=== PATIENT | male | born 1985 | race African-American/Black ===

== ENCOUNTER 2022-12-08 02:03 | Emergency (ER) | payer OTHER, SELFPAY ==
[2022-12-08 02:11] VITALS: BP 126/76; PULSE 119; RESP 20; TEMP 37.2; O2SAT 98; BMI 19.5
[2022-12-08] MEDS: Ibuprofen 800 MG TABLET PO (02:50)
--- NOTE | 2022-12-08 02:52 | ED.PSYCH ---
HPI - Psych General Chief Complaint: Psychiatric Symptoms Stated Complaint: psych Time Seen by Provider: 12/08/22 02:47 Source: patient Mode of arrival: ambulatory Limitations: no limitations History of Present Illness HPI Narrative: 37 yo male with PMH of schizoaffective disorder, psychosis, substance abuse here with c/o AH, using drugs, no housing and doesn't feel safe. He has no SI/HI. He states he has not taken his suboxone in 1 week and is using drugs. He wants to talk to crsisi. VAZQUEZ complaint: substance abuse and hallucinations Onset (ago): week(s) Duration: getting worse History of same: Yes Relieving factors: none Exacerbating factors: drug use Context: recent drug abuse, not taking psychiatric medications and significant life stressor Associated psychiatric symptoms: depression and auditory hallucinations Associated symptoms: denies other symptoms Treatments prior to arrival: none Related Data Home Medications Medication Instructions Recorded Confirmed buprenorphine 8 mg-naloxone 2 mg 1 film sublingual TID 12/08/22 12/08/22 sublingual film (Suboxone) Allergies Allergy/AdvReac Type Severity Reaction Status Date / Time No Known Allergies Allergy Verified 12/08/22 02:15 Review of Systems Review of Systems: Constitutional : No Fever, No Chills ENT/Mouth : No Ear Pain, No Nasal Congestion, No sore throat Eyes: No Eye Pain, No Swelling, No Redness Cardiovascular : No Chest Pain, No SOB Respiratory : No Cough, No Sputum, No Dyspnea Gastrointestinal : No Nausea, No Vomiting, No Diarrhea, No Hematochezia, No Melena Genitourinary : No Dysuria, No Urinary Frequency, No Hematuria Musculoskeletal : No Myalgias Skin : No Skin Lesions, No rash Neuro : No Weakness, No Numbness, No Paresthesias, No Dizziness, No Headache Psych : positive Anxiety, no Depression, no SI/HI, pos AH Heme/Lymph: No Lymphadenopathy Endocrine : No Polyuria, No Polydipsia All other systems reviewed and are negative PMFSH Past Medical History Attestation statement: The following information was validated with the patient. Medical History Schizoaffective disorder Social History Social History (Updated 12/08/22 @ 03:16 by Dixie Aguiar DO) Patient Tobacco Use Status: Current everyday Tobacco user Substance Use Type: Crack/Cocaine and Heroin Physical Exam Vital Signs: Vital Signs: Last Vital Signs Temp 99 F 12/08/22 02:11 Pulse 119 H 12/08/22 02:11 Resp 20 12/08/22 02:11 BP 126/76 12/08/22 02:11 Pulse Ox 98 12/08/22 02:11 O2 Del Method Room Air 12/08/22 02:11 BMI result Body Mass Index 19.5 Appearance: Alert. Oriented X3. No acute distress. Eating a sandwhich Eyes: Pupils equal, round and reactive to light. ENT: Pharynx normal. Neck: Normal inspection. Neck supple. CVS: Normal heart rate and rhythm. Pulses normal. Respiratory: No respiratory distress. Breath sounds normal. Abdomen: Soft and nontender. Skin: Skin warm and dry. Normal skin color. Normal skin turgor. Extremities: No lower extremity edema. No calf ttp Neuro: Oriented X 3. No motor deficit. No sensory deficit. CN2-12. Fluent conversation Course Course Course Narrative: Physician observation started at 318pm. Patient placed in physician observation because the patient needed more time for CARE team to assess the need for psych admission. At the time observation was started the patient's vitals were stable, patient is alert and oriented, Neuro: nonfocal, CV RRR, Lungs clear Medications Administered Discontinued Medications Generic Name Dose Route Start Last Admin Trade Name Javi PRN Reason Stop Dose Admin Ibuprofen 800 mg 12/08/22 02:42 12/08/22 02:50 Ibuprofen 800 Mg Tablet PO 12/08/22 02:43 800 mg ONCE ONE Administration Medical Decision Making Medical Decision Making [facility] Narrative: 37 yo male with PMH of schizoaffective disorder here with c/o substance abuse not taking medications and AH - at this time labs, CARE team consult. Denies medical complaints Differential Diagnosis Differential Diagnoses: The differential diagnosis associated with the presentation includes substance abuse, schizoaffective disorder Admission/Observation Consideration of admission/observation: Escalation of care including admission/observation considered observe until CARE team sees pateint Lab Data [facility] Lab Attestation statement: I reviewed the patient's lab results. External Record Review External record reviewed: Inpatient record Social Determinants Patient?s care significantly limited by Social Determinants of Health including: Inadequate housing, Alcoholism and drug addiction in family and Problems related to primary support group Discharge Plan Discharge Clinical Impression: Polysubstance abuse Patient Disposition: Still a Patient Prescriptions: No Action buprenorphine-naloxone [Suboxone] 8-2 mg film 1 film sublingual TID
[2022-12-08 03:31] LABS: MANUAL DIFF FLAG NO
[2022-12-08 03:32] LABS: Basophils Absolute Auto 0.1 X10*3/uL (0.0-0.2); Basophils Percent Auto 0.6 % (0-2); Eosinophils Absolute Auto 0.2 X10*3/uL (0.0-0.4); Eosinophils Percent Auto 1.9 % (0-4); Hematocrit 42.9 % (42.0-52.0); Hemoglobin 14.6 g/dl (14.0-18.0); Imm Gran Abs Auto 0.03 X10*3/uL (0.00-0.03); Imm Gran Pct Auto 0.4 % (0.0-0.4); Lymphocytes Percent Auto 26.2 % (20-40); Mean Corpuscular Hemoglobin 31.2 pg (27.0-33.0); Mean Corpuscular Volume 91.7 fL (80.0-98.0); Mean Platelet Volume 9.6 fL (9.4-12.4); Monocytes Absolute Auto 0.5 X10*3/uL (0.1-1.2); Monocytes Percent Auto 6.2 % (2-11); Neutrophils Percent Auto 64.7 % (45-73); Platelet Count 317 X10*3/uL (160-400); Red Blood Count 4.68 X10*6/uL (4.60-5.80); Red Cell Distribution Width 11.7 % (11.0-16.0); White Blood Count 7.7 X10*3/uL (4.8-10.8)
[2022-12-08 03:33] LABS: Appearance Urine Clear; Color Urine Yellow; Glucose Urine UA Negative (Negative); Leukocyte Esterase Urine Trace (Negative); Nitrite Urine Negative (Negative); PH 5.5 (5.0-9.0); UMIC TRIGGER UACC YES; Urine Blood Negative (Negative); Urine Ketones Negative (Negative); Urine Protein Negative (Neg-Trace)
[2022-12-08 03:38] LABS: Bacteria Urine None Seen (None Seen); Hyaline Casts Urine 0-2 /LPF (0-2); RBC Urine 0-2 /HPF (0-2); Squamous Epithelial Cell Urine 0-2 /HPF (0-2); WBC Urine 0-5 /HPF (0-5)
[2022-12-08 03:39] LABS: Amphetamine Screen Urine Not Detected (Not Detect); Barbiturates, Urine Not Detected (Not Detect); Benzodiazepines Screen Urine Not Detected (Not Detect); Cannabinoid Screen Urine POSITIVE (Not Detect); Cocaine Screen Urine POSITIVE (Not Detect); Fentanyl, urine POSITIVE (Not Detect); Opiate Screen Urine Not Detected (Not Detect); Phencyclidine Screen Urine Not Detected (Not Detect)
[2022-12-08 03:46] LABS: Alanine Aminotransferase 17 U/L (0-40); Alkaline Phosphatase 88 U/L (39-117); Anion Gap 17 (12-20); Aspartate Amino Transferase 26 U/L (5-37); Bilirubin Total 0.3 mg/dL (0.0-1.0); Blood Urea Nitrogen 10 mg/dL (9-16); Calcium 9.2 mg/dL (8.4-10.2); Carbon Dioxide 22 mmol/L (22-29); Chloride 104 mmol/L (96-108); Creatinine Clr Calc Pharmacy 118.7; Estimated Glomerular Filt Rate > 60; Ethanol 47 mg/dL; Glucose Random 118 mg/dL (60-115); Potassium 3.4 mmol/L (3.3-5.1); Sodium 140 mmol/L (135-145); Total Protein 6.8 g/dL (6.5-8.0)
[2022-12-08 06:51] LABS: COVID-19 Test Negative (Negative); IDNOW Serial# 6674DD1D
--- NOTE | 2022-12-08 07:21 | PC.NURSE ---
patient appears to remain asleep at present respirations are even and unlabored patient appears in no distress
[2022-12-08 08:36] VITALS: BP 120/69; PULSE 68; RESP 17; TEMP 36.4; O2SAT 99
--- NOTE | 2022-12-08 11:01 | MHC.CARE ---
Referral faxed to [facility] crisis stabilization unit. they will review.
[2022-12-08] MEDS: Buprenorphine/Naloxone 8/2 mg FILM 1 FILM SUBLINGUAL ×3 (11:52→21:04)
--- NOTE | 2022-12-08 13:04 | MHC.CARE ---
lvignacio w pt mother, reqesting call back
--- NOTE | 2022-12-08 13:09 | MHC.CARE ---
Per Ayaan with [facility], patient is still in review with [facility] for Adult [facility]
--- NOTE | 2022-12-08 14:39 | MHC.CARE ---
Faxed CCS referral to [facility], contact is Monica.
--- NOTE | 2022-12-08 14:50 | MHC.CARE ---
Monica CACERES calls back, they would like pt to be re-referred if needed tomorrow, concerned he had a BAL this morning and want to make sure he is stable with no withdrawals.
[2022-12-08] MEDS: hydrOXYzine HCL 50 MG TABLET PO (15:49)
--- NOTE | 2022-12-08 19:36 | MHC.CARE ---
[facility] declined pt reporting he may have withdrawals. T/w informed them t has not been exhibiting withdrawal sx's in ED and in fact was given methadone at 4 PM today. [facility] to speak with ingot supervisor and call back.
[2022-12-08 20:48] VITALS: BP 130/84; PULSE 85; RESP 20; TEMP 36.5; O2SAT 98
--- NOTE | 2022-12-08 22:03 | PHA.MEDREC ---
Pharmacy Consult ? Medication Reconciliation Pharmacy has reviewed the medication reconciliation completed by Arvind.
[2022-12-09 00:33] VITALS: BP 120/82; PULSE 103; RESP 18; TEMP 36.6; O2SAT 97
--- NOTE | 2022-12-09 06:25 | PC.NURSE ---
Patient slept through the night, no distress observed/reported, behavior non concerning, labs completed/resulted/reviewed, medication compliant, asymptomatic of ETOH withdrawal, CIWA score negative, disposition per care team is respite bed search, will continue to monitor.
[2022-12-09] MEDS: hydrOXYzine HCL 50 MG TABLET PO (08:10)
[2022-12-09] MEDS: Buprenorphine/Naloxone 8/2 mg FILM 1 FILM SUBLINGUAL (08:10)
--- NOTE | 2022-12-09 09:10 | MHC.CARE ---
faxed assessment to [facility] as requested, for review of Adult CCS LOC.
--- NOTE | 2022-12-09 10:18 | MHC.CARE ---
declined from [facility] adult [facility]. Faxed to [facility] 12/09 [phone]
[2022-12-09 11:01] VITALS: RESP 18
--- NOTE | 2022-12-09 11:49 | PC.NURSE ---
Lawrence was OOB this morning and was pleasant on approach. He denies any SI/HI but does endorse a little AH which he describes as whispers. Lawrence reports these are baseline for him but he is considering getting a provider to get back on psych meds. Appetite is good. Denies pain. Will be discharging to respite. Given a prescription for suboxone at discharge.
== END 2022-12-09 11:52 | disposition home or self-care (01) ==
PROVIDERS: Emergency Medicine; Emergency Provider Emergency Medicine Emergency Medical Services
DX: R44.1 Visual hallucinations (principal); F33.1 Major depressive disorder, recurrent, moderate; R44.0 Auditory hallucinations; F14.10 Cocaine abuse, uncomplicated; F11.10 Opioid abuse, uncomplicated; Z11.52 Encounter for screening for COVID-19; Z20.822 Contact with and (suspected) exposure to COVID-19; Z79.899 Other long term (current) drug therapy
CPT/HCPCS: 36415; 80053; 80307; 81001; 85025; 87635; 99284; S9485

== ENCOUNTER 2022-12-24 04:17 | Emergency (ER) | payer OTHER, SELFPAY ==
[2022-12-24 04:39] VITALS: BP 121/76; PULSE 132; RESP 20; TEMP 36.8; O2SAT 96; BMI 22.1
[2022-12-24 05:06] LABS: Hematocrit 40.9 % (42.0-52.0); Mean Corpuscular HGB Conc 34.2 g/dl (31.0-36.0); Mean Corpuscular Hemoglobin 30.8 pg (27.0-33.0); Mean Corpuscular Volume 89.9 fL (80.0-98.0); Mean Platelet Volume 9.5 fL (9.4-12.4); Platelet Count 350 X10*3/uL (160-400); Red Blood Count 4.55 X10*6/uL (4.60-5.80); Red Cell Distribution Width 10.9 % (11.0-16.0); White Blood Count 15.1 X10*3/uL (4.8-10.8)
[2022-12-24 05:18] VITALS: BP 119/75; PULSE 106; RESP 18; TEMP 36.8; O2SAT 94
[2022-12-24 05:19] LABS: Alanine Aminotransferase 42 U/L (0-40); Albumin Level 4.2 g/dL (3.5-5.0); Alkaline Phosphatase 86 U/L (39-117); Anion Gap 16 (12-20); Aspartate Amino Transferase 25 U/L (5-37); Bilirubin Total 0.3 mg/dL (0.0-1.0); Blood Urea Nitrogen 13 mg/dL (9-16); Calcium 9.6 mg/dL (8.4-10.2); Carbon Dioxide 25 mmol/L (22-29); Chloride 103 mmol/L (96-108); Creatinine Clr Calc Pharmacy 141.4; Estimated Glomerular Filt Rate > 60; Ethanol 57 mg/dL; Glucose Random 106 mg/dL (60-115); Potassium 3.7 mmol/L (3.3-5.1); Sodium 140 mmol/L (135-145); Total Protein 7.2 g/dL (6.5-8.0)
[2022-12-24 05:26] LABS: COVID-19 Test Negative (Negative); IDNOW Serial# BCCEAD1C
[2022-12-24 05:35] LABS: Amphetamine Screen Urine Not Detected (Not Detect); Barbiturates, Urine Not Detected (Not Detect); Benzodiazepines Screen Urine Not Detected (Not Detect); Cannabinoid Screen Urine POSITIVE (Not Detect); Cocaine Screen Urine POSITIVE (Not Detect); Fentanyl, urine Not Detected (Not Detect); Opiate Screen Urine Not Detected (Not Detect); Phencyclidine Screen Urine Not Detected (Not Detect)
[2022-12-24 05:50] VITALS: PULSE 106
--- NOTE | 2022-12-24 06:00 | PC.NURSE ---
PT arrived from waiting room. Reports hearing voices and wants detox from crack.cocaine. PT tearful. Belonging secured, pt changed over, VSS, labs drawn, urine sample sent down. Orders completed. 15 mins check initiated. PT requested and provided sandwich and divya crackers. Verification sent to [place] for suboxone dosage. PT resting quietly in room. Plan of care ongoing
--- NOTE | 2022-12-24 06:45 | ED_ITS ---
HPI - Psych General Chief Complaint: Psychiatric Symptoms Stated Complaint: Crisis Time Seen by Provider: 12/24/22 06:35 Source: patient, RN notes reviewed and old records reviewed Mode of arrival: ambulatory History of Present Illness HPI Narrative: 37-year-old male with past medical history of schizoaffective disorder, substance abuse, presenting to the ED complaining of hearing voices, visual hallucinations, and depression. Admits to using crack cocaine and marijuana. States is compliant with medications however missed dosed yesterday. Denies SI/HI at this time. Denies recent injury/fall or trauma, abdominal pain, nausea/vomiting, anorexia Related Data Home Medications Medication Instructions Recorded Confirmed buprenorphine 8 mg-naloxone 2 mg 1 film sublingual TID 12/08/22 12/24/22 sublingual film (Suboxone) buspirone 10 mg tablet 10 mg PO TID 12/24/22 12/24/22 clonidine HCl 0.1 mg tablet 0.1 mg PO BID 12/24/22 12/24/22 hydroxyzine pamoate 25 mg capsule 25 mg PO BID 12/24/22 12/24/22 mirtazapine 15 mg tablet 15 mg PO BEDTIME 12/24/22 12/24/22 quetiapine 400 mg tablet 200 - 400 mg PO BEDTIME 12/24/22 12/24/22 Allergies Allergy/AdvReac Type Severity Reaction Status Date / Time No Known Allergies Allergy Verified 12/08/22 02:15 Review of Systems 2 Review of Systems: Constitutional: No Fever, No Chills, No Fatigue, No Malaise ENT/Mouth: No Ear Pain, No Nasal Congestion, No sore throat, No Rhinorrhea, No Swallowing Difficulty Eyes: No Eye Pain, No Swelling, No Redness, No Vision Changes Cardiovascular: No Chest Pain, No SOB Respiratory: No Cough, No Dyspnea Gastrointestinal: No Nausea, No Vomiting, No Abdominal pain Musculoskeletal: No joint pain, No Myalgias, No Joint Swelling Skin: No Skin Lesions, No rash Neuro: No Weakness, No Headache Psych: No Anxiety/Panic, + Depression, No SI/HI, +AH/VH, + Social Issues Yes all other systems are reviewed and are negative Constitutional: Constitutional: Reports as per HPI [facility] Past Medical History Attestation statement: The following information was validated with the patient. Source: old records reviewed Medical History Schizoaffective disorder Social History Social History Patient Tobacco Use Status: Current everyday Tobacco user Smoked in Last 30 Days: Yes Use of substances other than those prescribed or required for medical reasons: Yes Substance Use Type: Crack/Cocaine and Marijuana Substance Use Frequency: Daily Last Used Substance: Just Prior to Admission Advance Directives: No Advance Directives Information Provided: No Healthcare Proxy: No Guardian: No Physical Exam 2 Vital Signs: Vital Signs: Last Vital Signs Temp 97.6 F 12/25/22 05:33 Pulse 106 H 12/25/22 05:33 Resp 18 12/25/22 05:33 BP 133/68 12/25/22 05:33 Pulse Ox 96 12/25/22 05:33 O2 Del Method Room Air 12/25/22 05:33 BMI result Body Mass Index 22.1 Const: General: cooperative and no acute distress O rientation/consciousness: patient oriented x3 Limitations: no limitations HEENT: Head: Yes normal to inspection and Yes atraumatic Ears: hearing grossly normal bilaterally General nose exam: Normal external nose present Face and sinus: Yes normal facial exam Eyes: General: appearance normal, both eyes and all related structures EOM: EOMs intact bilaterally Neck: Neck: Yes normal visual inspection and Yes no meningeal signs Resp: Effort & Inspection: normal respiratory effort and no respiratory distress Auscultation: clear to auscultation bilaterally Cardio: Rate: regular rate Heart sounds: S1 normal heart sound present and S2 normal heart sound present GI: Inspection: Yes normal to inspection Skin: Rashes: no rashes Wounds: no wounds Neuro: General: patient oriented x3, tone normal, moves all extremities, no meningeal signs and CN's II-XI intact bilaterally Cranial nerves: Yes CN's II-XII intact bilaterally Gait exam (Neuro): Normal gait present Extrem: General: Yes normal to inspection Psych: Attitude: cooperative Thought content: suicidality, no homicidality, Hallucination(s) present auditory and visual and Depressive thoughts present Course Course Course Narrative: -0803--leukocytosis noted of 14.8 > low suspicion for infection or severe sepsis. Labs otherwise reassuring -ethanol 57. Tox screen positive for cocaine and THC -physician observation initiated at 08:04AM as patient needs more time for re- evaluated by CARE team -patient was evaluated by CARE team and plan for Respite 1630--ED care transferred to shift stacker pending respite bed search Reevaluation(s) Reevaluation #1: No events overnight reported by the nurse, VSS (intermittent tachycardia), respite bed search is underway, continue with physician observation. Time: 07:27 Reevaluation #2: To be discharged to a respite bed, care team will arrange for transportation. Time: 15:06 Medications Administered Generic Name Dose Route Start Last Admin Trade Name Freq PRN Reason Stop Dose Admin Buprenorphine/Naloxone 1 film 12/24/22 21:00 12/25/22 14:01 Buprenorphine/Naloxone 8/2 Mg Film SUBLINGUAL 1 film TID SHARAN Administration Buspirone HCl 10 mg 12/24/22 09:00 12/25/22 14:02 Buspirone Hcl 10 Mg Tablet PO 10 mg TID SHARAN Administration Clonidine HCl 0.1 mg 12/24/22 21:00 12/25/22 09:22 Clonidine Hcl 0.1 Mg Tablet PO 0.1 mg BID SHARAN Administration Protocol Hydroxyzine HCl 25 mg 12/24/22 09:00 12/25/22 09:22 Hydroxyzine Hcl 25 Mg Tablet PO 25 mg BID SHARAN Administration Lorazepam 2 mg 12/24/22 08:38 12/24/22 08:44 Lorazepam 1 Mg Tablet PO 2 mg Q4H PRN Administration Alcohol Withdrawal Mirtazapine 15 mg 12/24/22 21:00 12/24/22 20:31 Mirtazapine 15 Mg Tablet PO 15 mg BEDTIME SHARAN Administration Quetiapine Fumarate 200 mg 12/24/22 21:00 12/24/22 20:31 Quetiapine Fumarate 200 Mg Tablet PO 200 mg BEDTIME SHARAN Administration Discontinued Medications Generic Name Dose Route Start Last Admin Trade Name Freq PRN Reason Stop Dose Admin Buprenorphine/Naloxone 1 film 12/24/22 15:34 12/24/22 15:48 Buprenorphine/Naloxone 8/2 Mg Film SUBLINGUAL 12/24/22 15:35 1 film ONCE ONE Administration Medical Decision Making Medical Decision Making MDM Narrative: 37-year-old male with past medical history of schizoaffective disorder, substance abuse, presenting to the ED complaining of hearing voices, visual hallucinations, and depression. On exam tachycardic, NAD, nontoxic appearing, cooperative, reports increasing depression however denies SI/HI. Concern for polysubstance abuse vs schizoaffective disorder. Rule out organic causes. Plan: Labs, tox screen, CARE team consult Please refer to course for remaining clinical decision making, interpretation of labs/imaging results, and discussions with consultants and/or family members. Differential Diagnosis Differential Diagnoses: The differential diagnosis associated with the presentation includes As above Admission/Observation Consideration of admission/observation: Escalation of care including admission/observation considered Consult Healthcare Provider Management of the patient was discussed with: Behavioral Health Provider Lab Data [facility] Lab Attestation statement: I reviewed the patient's lab results. 12/24/22 07:43 12/24/22 07:43 Labs: Lab Results 12/24/22 12/24/22 12/24/22 Range/Units 04:57 05:07 07:43 WBC 15.1 H 14.8 H (4.8-10.8) X10*3/uL RBC 4.55 L 4.32 L (4.60-5.80) X10*6/uL Hgb 14.0 13.3 L (14.0-18.0) g/dl Hct 40.9 L 39.0 L (42.0-52.0) % MCV 89.9 90.3 (80.0-98.0) fL MCH 30.8 30.8 (27.0-33.0) pg MCHC 34.2 34.1 (31.0-36.0) g/dl RDW 10.9 L 10.9 L (11.0-16.0) % Plt Count 350 314 (160-400) X10*3/uL MPV 9.5 9.3 L (9.4-12.4) fL Immature Gran % (Auto) 0.7 H (0.0-0.4) % Neut % (Auto) 74.3 H (45-73) % Lymph % (Auto) 13.4 L (20-40) % [place] % (Auto) 9.4 (2-11) % Eos % (Auto) 2.0 (0-4) % Baso % (Auto) 0.2 (0-2) % Lymph # (Auto) 2.0 (1.2-4.9) X10*3/uL [place] # (Auto) 1.4 H (0.1-1.2) X10*3/uL Eos # (Auto) 0.3 (0.0-0.4) X10*3/uL Baso # (Auto) 0.0 (0.0-0.2) X10*3/uL Abs Immat Gran (auto) 0.10 H (0.00-0.03) X10*3/uL Absolute Neuts (auto) 11.0 H (2.0-8.3) x10*3/uL Absolute Nucleated RBC 0.000 0.000 (0.0-0.012) X10*3/uL Nucleated RBC % (auto) 0.0 0.0 (0.0-0.2) /100WBC Sodium 140 140 (135-145) mmol/L Potassium 3.7 3.8 (3.3-5.1) mmol/L Chloride 103 102 (96-108) mmol/L Carbon Dioxide 25 31 H (22-29) mmol/L Anion Gap 16 11 L (12-20) BUN 13 14 (9-16) mg/dL Creatinine 0.72 0.76 (0.5-1.4) mg/dL Estim Creat Clear Calc 141.4 134.0 Estimated GFR > 60 > 60 Random Glucose 106 101 (60-115) mg/dL Calcium 9.6 9.5 (8.4-10.2) mg/dL Total Bilirubin 0.3 0.4 (0.0-1.0) mg/dL Direct Bilirubin 0.1 (0.0-0.5) mg/dL AST 25 23 (5-37) U/L ALT 42 H 39 (0-40) U/L Alkaline Phosphatase 86 81 (39-117) U/L Total Protein 7.2 6.8 (6.5-8.0) g/dL Albumin 4.2 4.0 (3.5-5.0) g/dL Salicylates < 5.0 L (15-30) mg/dL Urine Opiates Screen Not Detected (Not Detect) Urine Fentanyl Screen Not Detected (Not Detect) Acetaminophen < 17 (<30) mcg/mL Ur Barbiturates Screen Not Detected (Not Detect) Ur Phencyclidine Scrn Not Detected (Not Detect) Ur Amphetamines Screen Not Detected (Not Detect) U Benzodiazepines Scrn Not Detected (Not Detect) Urine Cocaine Screen POSITIVE H (Not Detect) U Marijuana (THC) Screen POSITIVE H (Not Detect) Ethyl Alcohol 57 < 10 mg/dL COVID-19 (DIONI) Negative (Negative) COVID-19 Clin Com See Note Radiology Impression Discussion of test interpretation with radiology: I have reviewed the radiologist's reading. External Record Review External record reviewed: Inpatient record, Office record, Outpatient record, Prior outpatient labs, Prior outpatient radiology, Primary care record and Outside ED record Tests considered The following testing was considered but not selected: As above Chronic Conditions Patient?s care impacted by: Other (Schizoaffective) Social Determinants Patient?s care significantly limited by Social Determinants of Health including: Problems related to primary support group and Other Social Determinant of Health Discharge Plan Discharge Clinical Impression: Hallucinations, Depressed, Schizoaffective disorder Patient Disposition: Xfer SNF Prescriptions: No Action buprenorphine-naloxone [Suboxone] 8-2 mg film 1 film sublingual TID buspirone 10 mg tablet 10 mg PO TID mirtazapine 15 mg tablet 15 mg PO BEDTIME hydroxyzine pamoate 25 mg capsule 25 mg PO BID quetiapine 400 mg tablet 200 - 400 mg PO BEDTIME clonidine HCl 0.1 mg tablet 0.1 mg PO BID Interventions: [place]-Suicide Risk Severity Scale Last Done: 12/25/22 13:28
[2022-12-24 07:47] LABS: MANUAL DIFF FLAG NO
[2022-12-24 07:51] LABS: Basophils Percent Auto 0.2 % (0-2); Eosinophils Absolute Auto 0.3 X10*3/uL (0.0-0.4); Hemoglobin 13.3 g/dl (14.0-18.0); Imm Gran Pct Auto 0.7 % (0.0-0.4); Lymphocytes Percent Auto 13.4 % (20-40); Mean Corpuscular HGB Conc 34.1 g/dl (31.0-36.0); Mean Corpuscular Hemoglobin 30.8 pg (27.0-33.0); Mean Corpuscular Volume 90.3 fL (80.0-98.0); Mean Platelet Volume 9.3 fL (9.4-12.4); Monocytes Absolute Auto 1.4 X10*3/uL (0.1-1.2); Monocytes Percent Auto 9.4 % (2-11); Neutrophils Percent Auto 74.3 % (45-73); Platelet Count 314 X10*3/uL (160-400); Red Blood Count 4.32 X10*6/uL (4.60-5.80); Red Cell Distribution Width 10.9 % (11.0-16.0); White Blood Count 14.8 X10*3/uL (4.8-10.8)
[2022-12-24 08:05] LABS: Acetaminophen LAB < 17 mcg/mL (<30); Alanine Aminotransferase 39 U/L (0-40); Alkaline Phosphatase 81 U/L (39-117); Anion Gap 11 (12-20); Aspartate Amino Transferase 23 U/L (5-37); Bilirubin Direct 0.1 mg/dL (0.0-0.5); Bilirubin Total 0.4 mg/dL (0.0-1.0); Blood Urea Nitrogen 14 mg/dL (9-16); Calcium 9.5 mg/dL (8.4-10.2); Carbon Dioxide 31 mmol/L (22-29); Chloride 102 mmol/L (96-108); Estimated Glomerular Filt Rate > 60; Ethanol < 10 mg/dL; Glucose Random 101 mg/dL (60-115); Potassium 3.8 mmol/L (3.3-5.1); Salicylate < 5.0 mg/dL (15-30); Sodium 140 mmol/L (135-145); Total Protein 6.8 g/dL (6.5-8.0)
[2022-12-24 08:43] VITALS: BP 112/61; PULSE 101; RESP 18; TEMP 36.4; O2SAT 95
[2022-12-24] MEDS: LORazepam 1 MG TABLET 2 MG PO (08:44)
[2022-12-24] MEDS: busPIRone HCl 10 MG TABLET PO ×3 (08:45→20:31)
[2022-12-24] MEDS: hydrOXYzine HCL 25 MG TABLET PO ×2 (08:45→20:31)
--- NOTE | 2022-12-24 11:44 | PHA.MEDREC ---
Pharmacy Consult ? Medication Reconciliation Pharmacy has completed the medication reconciliation. Reviewed med rec done by nursing/per claim history
--- NOTE | 2022-12-24 11:53 | MHC.CARE ---
Referrals faxed to [facility] and [facility] respites
[2022-12-24] MEDS: Buprenorphine/Naloxone 8/2 mg FILM 1 FILM SUBLINGUAL ×2 (15:48→20:31)
--- NOTE | 2022-12-24 16:05 | PC.NURSE ---
did speak to staff at [facility] (suboxone provider) [phone] and they have him on 8/2mg films tid
--- NOTE | 2022-12-24 16:32 | PHA.MEDREC ---
Pharmacy Consult ? Medication Reconciliation Pharmacy has reviewed the medication reconciliation completed by nursing. Yola Pena, YaimaD
--- NOTE | 2022-12-24 17:05 | MHC.CARE ---
Called [facility] to follow up on referral, staff reported they have received referral, however after referral is faxed CARE team must call to confirm fax has been received to activate the referral before it can be reviewed. Staff reports they will begin to review it now @ 1700.
[2022-12-24 17:16] VITALS: BP 123/68; PULSE 81; RESP 18; O2SAT 98
[2022-12-24] MEDS: cloNIDine HCL 0.1 MG TABLET PO (20:31)
[2022-12-24] MEDS: QUEtiapine Fumarate 200 MG TABLET PO (20:31)
[2022-12-24] MEDS: Mirtazapine 15 MG TABLET PO (20:31)
[2022-12-24 20:32] VITALS: BP 135/60; PULSE 90; O2SAT 98
[2022-12-25 05:33] VITALS: BP 133/68; PULSE 106; RESP 18; TEMP 36.4; O2SAT 96
--- NOTE | 2022-12-25 06:00 | PC.NURSE ---
Patient slept through the night, no distress observed/reported, asymptomatic of ETOH withdrawal, CIWA score 0, medication compliant, behavior non concerning, disposition per care team is respite bed search, labs completed/resulted, will continue to monitor.
[2022-12-25] MEDS: Buprenorphine/Naloxone 8/2 mg FILM 1 FILM SUBLINGUAL ×2 (09:22→14:01)
[2022-12-25] MEDS: busPIRone HCl 10 MG TABLET PO ×2 (09:22→14:02)
[2022-12-25] MEDS: hydrOXYzine HCL 25 MG TABLET PO (09:22)
[2022-12-25] MEDS: cloNIDine HCL 0.1 MG TABLET PO (09:22)
--- NOTE | 2022-12-25 13:27 | PC.NURSE ---
talked to asma on phone per care team request, [phone] they relayed client cant come without meds, they said client could re-present with meds as long as he didnt use substances.
--- NOTE | 2022-12-25 13:59 | MHC.CARE ---
Numerous calls were made as follow up to [facility] to inquire if he had been accepted. Care team KENTRELL spoke to Rudy at [facility] who reviewed his referral. Rudy inquired about his toxicology and medications and inquired if he had any of his medications with him. It was reported that he did not and that he would need to go gather [place]. Once he did this, he could self present at [facility] through [facility]. A Lyft was being ordered to assist the patient and ED medical doctor for discharge.
== END 2022-12-25 15:56 | disposition home or self-care (01) ==
PROVIDERS: Physician Assistant; Emergency Provider Emergency Medicine Emergency Medical Services
DX: F25.1 Schizoaffective disorder, depressive type (principal); Z11.52 Encounter for screening for COVID-19; Z20.822 Contact with and (suspected) exposure to COVID-19; Z79.899 Other long term (current) drug therapy; F17.210 Nicotine dependence, cigarettes, uncomplicated; Z71.6 Tobacco abuse counseling
CPT/HCPCS: 36415; 80048; 80053; 80076; 80143; 80179; 80307; 85025; 85027; 87635; 99285; S9485

== ENCOUNTER 2022-12-26 12:27 | Emergency (ER) | payer OTHER, SELFPAY ==
[2022-12-26 12:55] VITALS: BP 125/76; PULSE 106; RESP 16; TEMP 37.2; O2SAT 98; BMI 22.4
--- NOTE | 2022-12-26 15:07 | ED.PSYCH ---
HPI - Psych General Chief Complaint: Psychiatric Symptoms Stated Complaint: Crisis Time Seen by Provider: 12/26/22 13:03 Source: patient Mode of arrival: ambulatory Limitations: no limitations History of Present Illness HPI Narrative: patient is a 37-year-old male who presents emergency department Requesting assistance with respite. patient states that he was discharged from the emergency department yesterday to a [facility] in [place]. Upon his arrival there he was reportedly not accepted for respite as he did not have his Suboxone and/or a prescription. He states that he has a telehealth appointment weekly and then receives weekly Suboxone prescription from [facility], His new prescription will be available tomorrow. He is currently homeless residing in a tent in [place], [place] reportedly the remainder of his box and is but he did not have transportation to get there prior to going to the respite facility. At this time he denies suicidal or homicidal ideations. He endorses recent crack cocaine and marijuana usage, denies usage today. Related Data Home Medications Medication Instructions Recorded Confirmed buprenorphine 8 mg-naloxone 2 mg 1 film sublingual TID 12/08/22 12/26/22 sublingual film (Suboxone) buspirone 10 mg tablet 10 mg PO TID 12/24/22 12/26/22 clonidine HCl 0.1 mg tablet 0.1 mg PO BID 12/24/22 12/26/22 hydroxyzine pamoate 25 mg capsule 25 mg PO BID 12/24/22 12/26/22 mirtazapine 15 mg tablet 15 mg PO BEDTIME 12/24/22 12/26/22 quetiapine 400 mg tablet 200 - 400 mg PO BEDTIME 12/24/22 12/26/22 Allergies Allergy/AdvReac Type Severity Reaction Status Date / Time No Known Allergies Allergy Verified 12/08/22 02:15 Review of Systems Review of Systems: Yes all other systems are reviewed and are negative PMFSH Past Medical History Attestation statement: The following information was validated with the patient. Source: old records reviewed Medical History Schizoaffective disorder Social History Social History Patient Tobacco Use Status: Current everyday Tobacco user Substance Use Type: Crack/Cocaine and Marijuana Advance Directives: No Advance Directives Information Provided: Yes Physical Exam Vital Signs: Vital Signs: Last Vital Signs Temp 98.9 F 12/26/22 12:55 Pulse 106 H 12/26/22 12:55 Resp 16 12/26/22 12:55 BP 125/76 12/26/22 12:55 Pulse Ox 98 12/26/22 12:55 O2 Del Method Room Air 12/26/22 12:55 BMI result Body Mass Index 22.4 Appearance: Alert.?Oriented to person, place and time. No acute distress.?Normal affect. Eyes: Pupils equal, round and reactive to light.? ENT: Pharynx normal.?? Neck: Normal inspection.? Neck supple.?? CVS: Heart sounds normal. Pulses normal.?? Respiratory: No respiratory distress.? Lung sounds clear to auscultation bilaterally?? Abdomen: Soft and non-tender. Normoactive bowel sounds. ? Skin: Skin warm and dry.? Normal skin color.? ? Extremities: No lower extremity edema.? Neuro: Moves all extremities spontaneously. Sensation intact bilaterally. CN II-XII intact. No focal neuro deficits. Ambulates with normal steady gait. Medical Decision Making Medical Decision Making MDM Narrative: patient is a 37-year-old male with past medical history of schizoaffective disorder, substance use disorder presenting to emergency department requesting assistance again with respite as per HPI. At this time denies suicidal or homicidal ideation. Will consult care team to determine placement at respite facility, he will be able to warp picker Suboxone prescription tomorrow which is reportedly at a pharmacy right next to the respite facility he presented to yesterday. no acute distress. Placed in position observation pending Care team evaluation. Differential Diagnosis Differential Diagnoses: The differential diagnosis associated with the presentation includes ( Upon of the, affective disorder and panic disorder without 2 days ago, no indication for repeat labs at this time.) Admission/Observation Consideration of admission/observation: Escalation of care including admission/observation considered ( Placed in physician observation so that care team evaluation can ensue for assistance with respite placement) Consult Healthcare Provider Management of the patient was discussed with: Behavioral Health Provider Lab Data Labs: Lab Results 12/26/22 12/26/22 12/26/22 Range/Units 15:26 15:26 15:26 Urine Color Yellow Cancelled Urine Appearance Clear Cancelled Urine pH 7.0 (5.0-9.0) Ur Specific [place] (1.005-1.025) Urine Protein (Neg-Trace) mg/dL Urine Glucose (UA) (Negative) mg/dL Urine Ketones (Negative) mg/dL Urine Blood (Negative) Urine Nitrite (Negative) Ur Leukocyte Esterase (Negative) Urine RBC (0-2) /HPF Urine WBC (0-5) /HPF Urine WBC Clumps Ur Squamous Epith Cells (0-2) /HPF Ur Transition Epith Cell Ur Renal Epithelial Cell Calcium Oxalate Crystal Leucine Crystals Cystine Crystals Tyrosine Crystals Other Crystals Urine Bacteria (None Seen) Urine Parasites Bilirubin Casts Epithelial Casts Fatty Casts Hyaline Casts (0-2) /LPF Granular Casts Waxy Casts Broad Casts RBC Casts WBC Casts Other Casts Urine Trichomonas Urine Yeast Urine Opiates Screen (Not Detect) Urine Fentanyl Screen (Not Detect) Ur Barbiturates Screen (Not Detect) Ur Phencyclidine Scrn (Not Detect) Ur Amphetamines Screen (Not Detect) U Benzodiazepines Scrn (Not Detect) Urine Cocaine Screen (Not Detect) U Marijuana (THC) Screen (Not Detect) 12/26/22 12/26/22 12/26/22 Range/Units 15:26 15:26 15:26 Urine Color Urine Appearance Urine pH Cancelled (5.0-9.0) Ur Specific [place] 1.020 Cancelled (1.005-1.025) Urine Protein Negative Cancelled (Neg-Trace) mg/dL Urine Glucose (UA) Negative (Negative) mg/dL Urine Ketones (Negative) mg/dL Urine Blood (Negative) Urine Nitrite (Negative) Ur Leukocyte Esterase (Negative) Urine RBC (0-2) /HPF Urine WBC (0-5) /HPF Urine WBC Clumps Ur Squamous Epith Cells (0-2) /HPF Ur Transition Epith Cell Ur Renal Epithelial Cell Calcium Oxalate Crystal Leucine Crystals Cystine Crystals Tyrosine Crystals Other Crystals Urine Bacteria (None Seen) Urine Parasites Bilirubin Casts Epithelial Casts Fatty Casts Hyaline Casts (0-2) /LPF Granular Casts Waxy Casts Broad Casts RBC Casts WBC Casts Other Casts Urine Trichomonas Urine Yeast Urine Opiates Screen (Not Detect) Urine Fentanyl Screen (Not Detect) Ur Barbiturates Screen (Not Detect) Ur Phencyclidine Scrn (Not Detect) Ur Amphetamines Screen (Not Detect) U Benzodiazepines Scrn (Not Detect) Urine Cocaine Screen (Not Detect) U Marijuana (THC) Screen (Not Detect) 12/26/22 12/26/22 12/26/22 Range/Units 15:26 15:26 15:26 Urine Color Urine Appearance Urine pH (5.0-9.0) Ur Specific [place] (1.005-1.025) Urine Protein (Neg-Trace) mg/dL Urine Glucose (UA) Cancelled (Negative) mg/dL Urine Ketones Negative Cancelled (Negative) mg/dL Urine Blood Negative Cancelled (Negative) Urine Nitrite Negative (Negative) Ur Leukocyte Esterase (Negative) Urine RBC (0-2) /HPF Urine WBC (0-5) /HPF Urine WBC Clumps Ur Squamous Epith Cells (0-2) /HPF Ur Transition Epith Cell Ur Renal Epithelial Cell Calcium Oxalate Crystal Leucine Crystals Cystine Crystals Tyrosine Crystals Other Crystals Urine Bacteria (None Seen) Urine Parasites Bilirubin Casts Epithelial Casts Fatty Casts Hyaline Casts (0-2) /LPF Granular Casts Waxy Casts Broad Casts RBC Casts WBC Casts Other Casts Urine Trichomonas Urine Yeast Urine Opiates Screen (Not Detect) Urine Fentanyl Screen (Not Detect) Ur Barbiturates Screen (Not Detect) Ur Phencyclidine Scrn (Not Detect) Ur Amphetamines Screen (Not Detect) U Benzodiazepines Scrn (Not Detect) Urine Cocaine Screen (Not Detect) U Marijuana (THC) Screen (Not Detect) 12/26/22 12/26/22 12/26/22 Range/Units 15:26 15:26 15:26 Urine Color Urine Appearance Urine pH (5.0-9.0) Ur Specific [place] (1.005-1.025) Urine Protein (Neg-Trace) mg/dL Urine Glucose (UA) (Negative) mg/dL Urine Ketones (Negative) mg/dL Urine Blood (Negative) Urine Nitrite Cancelled (Negative) Ur Leukocyte Esterase Trace H Cancelled (Negative) Urine RBC 0-2 Cancelled (0-2) /HPF Urine WBC 6-10 H (0-5) /HPF Urine WBC Clumps Ur Squamous Epith Cells (0-2) /HPF Ur Transition Epith Cell Ur Renal Epithelial Cell Calcium Oxalate Crystal Leucine Crystals Cystine Crystals Tyrosine Crystals Other Crystals Urine Bacteria (None Seen) Urine Parasites Bilirubin Casts Epithelial Casts Fatty Casts Hyaline Casts (0-2) /LPF Granular Casts Waxy Casts Broad Casts RBC Casts WBC Casts Other Casts Urine Trichomonas Urine Yeast Urine Opiates Screen (Not Detect) Urine Fentanyl Screen (Not Detect) Ur Barbiturates Screen (Not Detect) Ur Phencyclidine Scrn (Not Detect) Ur Amphetamines Screen (Not Detect) U Benzodiazepines Scrn (Not Detect) Urine Cocaine Screen (Not Detect) U Marijuana (THC) Screen (Not Detect) 12/26/22 12/26/22 12/26/22 Range/Units 15:26 15:26 15:26 Urine Color Urine Appearance Urine pH (5.0-9.0) Ur Specific [place] (1.005-1.025) Urine Protein (Neg-Trace) mg/dL Urine Glucose (UA) (Negative) mg/dL Urine Ketones (Negative) mg/dL Urine Blood (Negative) Urine Nitrite (Negative) Ur Leukocyte Esterase (Negative) Urine RBC (0-2) /HPF Urine WBC Cancelled (0-5) /HPF Urine WBC Clumps Cancelled Ur Squamous Epith Cells 0-2 Cancelled (0-2) /HPF Ur Transition Epith Cell Cancelled Ur Renal Epithelial Cell Cancelled Calcium Oxalate Crystal Cancelled Leucine Crystals Cancelled Cystine Crystals Cancelled Tyrosine Crystals Cancelled Other Crystals Cancelled Urine Bacteria None Seen Cancelled (None Seen) Urine Parasites Cancelled Bilirubin Casts Cancelled Epithelial Casts Cancelled Fatty Casts Cancelled Hyaline Casts 0-2 (0-2) /LPF Granular Casts Waxy Casts Broad Casts RBC Casts WBC Casts Other Casts Urine Trichomonas Urine Yeast Urine Opiates Screen (Not Detect) Urine Fentanyl Screen (Not Detect) Ur Barbiturates Screen (Not Detect) Ur Phencyclidine Scrn (Not Detect) Ur Amphetamines Screen (Not Detect) U Benzodiazepines Scrn (Not Detect) Urine Cocaine Screen (Not Detect) U Marijuana (THC) Screen (Not Detect) 12/26/22 Range/Units 15:26 Urine Color Urine Appearance Urine pH (5.0-9.0) Ur Specific Ransom (1.005-1.025) Urine Protein (Neg-Trace) mg/dL Urine Glucose (UA) (Negative) mg/dL Urine Ketones (Negative) mg/dL Urine Blood (Negative) Urine Nitrite (Negative) Ur Leukocyte Esterase (Negative) Urine RBC (0-2) /HPF Urine WBC (0-5) /HPF Urine WBC Clumps Ur Squamous Epith Cells (0-2) /HPF Ur Transition Epith Cell Ur Renal Epithelial Cell Calcium Oxalate Crystal Leucine Crystals Cystine Crystals Tyrosine Crystals Other Crystals Urine Bacteria (None Seen) Urine Parasites Bilirubin Casts Epithelial Casts Fatty Casts Hyaline Casts Cancelled (0-2) /LPF Granular Casts Cancelled Waxy Casts Cancelled Broad Casts Cancelled RBC Casts Cancelled WBC Casts Cancelled Other Casts Cancelled Urine Trichomonas Cancelled Urine Yeast Cancelled Urine Opiates Screen Not Detected (Not Detect) Urine Fentanyl Screen Not Detected (Not Detect) Ur Barbiturates Screen Not Detected (Not Detect) Ur Phencyclidine Scrn Not Detected (Not Detect) Ur Amphetamines Screen Not Detected (Not Detect) U Benzodiazepines Scrn Not Detected (Not Detect) Urine Cocaine Screen POSITIVE H (Not Detect) U Marijuana (THC) Screen POSITIVE H (Not Detect) External Record Review External record reviewed: Prior outpatient labs Social Determinants Patient?s care significantly limited by Social Determinants of Health including: Inadequate housing, Low income and Alcoholism and drug addiction in family Discharge Plan Discharge Clinical Impression: Depression Patient Disposition: Still a Patient Prescriptions: No Action buprenorphine-naloxone [Suboxone] 8-2 mg film 1 film sublingual TID buspirone 10 mg tablet 10 mg PO TID mirtazapine 15 mg tablet 15 mg PO BEDTIME hydroxyzine pamoate 25 mg capsule 25 mg PO BID quetiapine 400 mg tablet 200 - 400 mg PO BEDTIME clonidine HCl 0.1 mg tablet 0.1 mg PO BID
[2022-12-26 15:32] LABS: Appearance Urine Clear; Color Urine Yellow; Glucose Urine UA Negative (Negative); Leukocyte Esterase Urine Trace (Negative); Nitrite Urine Negative (Negative); UMIC TRIGGER UACC YES; Urine Blood Negative (Negative); Urine Ketones Negative (Negative); Urine Protein Negative (Neg-Trace)
[2022-12-26 15:37] LABS: Bacteria Urine None Seen (None Seen); Hyaline Casts Urine 0-2 /LPF (0-2); RBC Urine 0-2 /HPF (0-2); Squamous Epithelial Cell Urine 0-2 /HPF (0-2); UACC Culture Trigger YES
[2022-12-26 15:43] LABS: Amphetamine Screen Urine Not Detected (Not Detect); Barbiturates, Urine Not Detected (Not Detect); Benzodiazepines Screen Urine Not Detected (Not Detect); Cannabinoid Screen Urine POSITIVE (Not Detect); Cocaine Screen Urine POSITIVE (Not Detect); Fentanyl, urine Not Detected (Not Detect); Opiate Screen Urine Not Detected (Not Detect); Phencyclidine Screen Urine Not Detected (Not Detect)
[2022-12-26 18:23] LABS: MANUAL DIFF FLAG NO
[2022-12-26 18:24] LABS: Basophils Absolute Auto 0.1 X10*3/uL (0.0-0.2); Basophils Percent Auto 0.7 % (0-2); Eosinophils Absolute Auto 0.5 X10*3/uL (0.0-0.4); Eosinophils Percent Auto 5.6 % (0-4); Hematocrit 36.6 % (42.0-52.0); Hemoglobin 12.6 g/dl (14.0-18.0); Imm Gran Abs Auto 0.06 X10*3/uL (0.00-0.03); Imm Gran Pct Auto 0.7 % (0.0-0.4); Lymphocytes Absolute Auto 2.1 X10*3/uL (1.2-4.9); Lymphocytes Percent Auto 25.5 % (20-40); Mean Corpuscular HGB Conc 34.4 g/dl (31.0-36.0); Mean Corpuscular Hemoglobin 31.2 pg (27.0-33.0); Mean Corpuscular Volume 90.6 fL (80.0-98.0); Mean Platelet Volume 9.6 fL (9.4-12.4); Monocytes Absolute Auto 0.8 X10*3/uL (0.1-1.2); Monocytes Percent Auto 9.5 % (2-11); Neutrophils Absolute Auto 4.7 x10*3/uL (2.0-8.3); Platelet Count 282 X10*3/uL (160-400); Red Blood Count 4.04 X10*6/uL (4.60-5.80); White Blood Count 8.1 X10*3/uL (4.8-10.8)
[2022-12-26 18:37] LABS: Alanine Aminotransferase 24 U/L (0-40); Albumin Level 3.5 g/dL (3.5-5.0); Alkaline Phosphatase 79 U/L (39-117); Anion Gap 13 (12-20); Aspartate Amino Transferase 16 U/L (5-37); Bilirubin Total 0.2 mg/dL (0.0-1.0); Blood Urea Nitrogen 15 mg/dL (9-16); Calcium 9.2 mg/dL (8.4-10.2); Carbon Dioxide 27 mmol/L (22-29); Chloride 104 mmol/L (96-108); Creatinine Clr Calc Pharmacy 129.9; Estimated Glomerular Filt Rate > 60; Ethanol < 10 mg/dL; Glucose Fasting 112 mg/dL (60-99); Potassium 3.7 mmol/L (3.3-5.1); Sodium 140 mmol/L (135-145)
[2022-12-26 20:09] VITALS: BP 117/62; PULSE 83; RESP 16; TEMP 36.8; O2SAT 95
[2022-12-27] MEDS: QUEtiapine Fumarate 200 MG TABLET PO (02:10)
[2022-12-27] MEDS: busPIRone HCl 10 MG TABLET PO ×2 (02:10→08:28)
[2022-12-27] MEDS: hydrOXYzine HCL 25 MG TABLET PO ×2 (02:10→08:27)
[2022-12-27] MEDS: Buprenorphine/Naloxone 8/2 mg FILM 1 FILM SUBLINGUAL ×2 (02:10→08:27)
[2022-12-27] MEDS: cloNIDine HCL 0.1 MG TABLET PO ×2 (02:10→08:27)
[2022-12-27] MEDS: Mirtazapine 15 MG TABLET PO (02:10)
[2022-12-27 03:40] VITALS: BP 111/68; PULSE 86; RESP 16; TEMP 36.1; O2SAT 96
--- NOTE | 2022-12-27 07:20 | PC.NURSE ---
PT up periodically throughout evening requested and provided food, and drinks. PT medication as per MAR. Safety precautions in place. PT denies SI/HI at this time. Plan is for respite.
[2022-12-27 08:20] VITALS: BP 129/75; PULSE 88; RESP 17; TEMP 36.3; O2SAT 97
[2022-12-27 10:15] LABS: COVID-19 Test Negative (Negative); IDNOW Serial# 08D9AD1C
--- NOTE | 2022-12-27 11:29 | PC.NURSE ---
Lawrence was OOB and req/rec his AM medication including his Suboxone. Denies pain or discomfort. Denies SI/HI/AVH. Discharged to respite.
--- NOTE | 2022-12-27 11:35 | MHC.CARE ---
Pt was referred and accepted to [facility].
== END 2022-12-27 11:51 | disposition home or self-care (01) ==
PROVIDERS: Emergency Medicine; Emergency Provider Emergency Medicine
DX: F32.A Depression, unspecified (principal); F25.9 Schizoaffective disorder, unspecified; F19.90 Other psychoactive substance use, unspecified, uncomplicated; Z11.52 Encounter for screening for COVID-19; Z59.00 Homelessness unspecified
CPT/HCPCS: 36415; 80053; 80307; 81001; 85025; 87086; 87635; 99284; S9485

== ENCOUNTER 2023-04-17 02:28 | Emergency (ER) | payer OTHER, SELFPAY ==
[2023-04-17 02:36] VITALS: BP 127/88; PULSE 80; RESP 16; TEMP 36.6; O2SAT 97; BMI 20.8
[2023-04-17 03:22] LABS: MANUAL DIFF FLAG NO
[2023-04-17 03:25] LABS: Basophils Percent Auto 0.4 % (0-2); Eosinophils Absolute Auto 0.2 X10*3/uL (0.0-0.4); Hematocrit 41.5 % (42.0-52.0); Hemoglobin 14.3 g/dl (14.0-18.0); Imm Gran Abs Auto 0.02 X10*3/uL (0.00-0.03); Imm Gran Pct Auto 0.3 % (0.0-0.4); Lymphocytes Percent Auto 26.6 % (20-40); Mean Corpuscular HGB Conc 34.5 g/dl (31.0-36.0); Mean Corpuscular Hemoglobin 30.2 pg (27.0-33.0); Mean Corpuscular Volume 87.7 fL (80.0-98.0); Mean Platelet Volume 9.7 fL (9.4-12.4); Monocytes Absolute Auto 0.5 X10*3/uL (0.1-1.2); Monocytes Percent Auto 6.4 % (2-11); Neutrophils Absolute Auto 4.9 x10*3/uL (2.0-8.3); Neutrophils Percent Auto 63.3 % (45-73); Platelet Count 291 X10*3/uL (160-400); Red Blood Count 4.73 X10*6/uL (4.60-5.80); Red Cell Distribution Width 11.9 % (11.0-16.0); White Blood Count 7.7 X10*3/uL (4.8-10.8)
[2023-04-17 03:32] LABS: Appearance Urine Clear; Color Urine Yellow; Glucose Urine UA Negative (Negative); Leukocyte Esterase Urine Negative (Negative); Nitrite Urine Negative (Negative); PH 6.5 (5.0-9.0); Specific Gravity - Urine 1.025 (1.005-1.025); Urine Blood Negative (Negative); Urine Ketones Negative (Negative); Urine Protein Negative (Neg-Trace)
[2023-04-17 03:38] LABS: Amphetamine Screen Urine Not Detected (Not Detect); Barbiturates, Urine Not Detected (Not Detect); Benzodiazepines Screen Urine Not Detected (Not Detect); Cannabinoid Screen Urine Not Detected (Not Detect); Cocaine Screen Urine POSITIVE (Not Detect); Fentanyl, urine POSITIVE (Not Detect); Opiate Screen Urine POSITIVE (Not Detect); Phencyclidine Screen Urine Not Detected (Not Detect)
[2023-04-17 03:45] LABS: Alanine Aminotransferase 15 U/L (0-40); Albumin Level 4.2 g/dL (3.5-5.0); Alkaline Phosphatase 87 U/L (39-117); Anion Gap 14 (12-20); Aspartate Amino Transferase 26 U/L (5-37); Bilirubin Total 0.5 mg/dL (0.0-1.0); Blood Urea Nitrogen 14 mg/dL (9-16); Calcium 9.2 mg/dL (8.4-10.2); Carbon Dioxide 27 mmol/L (22-29); Chloride 105 mmol/L (96-108); Creatinine Clr Calc Pharmacy 127.7; Estimated Glomerular Filt Rate > 60; Ethanol < 10 mg/dL; Glucose Random 117 mg/dL (60-115); Potassium 3.5 mmol/L (3.3-5.1); Sodium 142 mmol/L (135-145); Total Protein 6.8 g/dL (6.5-8.0)
[2023-04-17 03:47] LABS: IDNOW Serial# 152EDE1D
[2023-04-17 03:48] LABS: COVID-19 Test Negative (Negative)
--- NOTE | 2023-04-17 04:00 | ED.PSYCH ---
HPI - Psych General Chief Complaint: Psychiatric Symptoms Stated Complaint: psych/crisis Time Seen by Provider: 04/17/23 03:49 Source: patient Mode of arrival: ambulatory Limitations: no limitations History of Present Illness HPI Narrative: 37-year-old male with past medical history of schizoaffective disorder, substance abuse, presenting to the ED complaining of hearing voices. Patient states that the voices are telling him that someone is going to kill him. He states that he has been noncompliant with his medications. He also admits to smoke crack cocaine yesterday and intranasal heroin yesterday. Patient states he is homeless he has been living on the streets. He states that his hands and feet have been painful and a been swollen for months secondary to the cold weather and frostbite. Related Data Home Medications Medication Instructions Recorded Confirmed buprenorphine 8 mg-naloxone 2 mg 30 mg sublingual DAILY 04/17/23 04/17/23 sublingual film (Suboxone) Allergies Allergy/AdvReac Type Severity Reaction Status Date / Time No Known Allergies Allergy Verified 04/17/23 02:36 Review of Systems Review of Systems: Yes all other systems are reviewed and are negative PMFSH Past Medical History Medical History Schizoaffective disorder Social History Social History Alcohol intake: unknown Patient Tobacco Use Status: Current everyday Tobacco user Substance Use Type: Crack/Cocaine, Heroin and Opiates Substance Use Frequency: Weekly Last Used Substance: Hours (ago) Advance Directives: No Advance Directives Information Provided: No Physical Exam Vital Signs: Vital Signs: Last Vital Signs Temp 97.8 F 04/17/23 02:36 Pulse 80 04/17/23 02:36 Resp 18 04/17/23 06:00 BP 127/88 04/17/23 02:36 Pulse Ox 97 04/17/23 02:36 O2 Del Method Room Air 04/17/23 02:36 BMI result Body Mass Index 20.8 Vital signs were no Exam: General: Awake, alert in no distress Head: Normocephalic, atraumatic EENT: Pupils are pinpoint, Lids normal, sclera normal, conjunctiva normal, nose normal , ears normal, throat without erythema or exudates Neck: Supple, no adenopathy Lung: breath sounds symmetric, no wheezing, rales or rhonchi Chest: symmetric movement, nontender Heart: regular rate and rhythm, normal S1, S2 no murmurs or rubs Abdomen: soft, non-tender, nondistended, normal bowel sounds Back: no vertebral tenderness, no CVAT Extremities: Patient's hands are warm, he does have symmetric swelling of all of his fingers, patient's hands are tender to palpation. patient's feet are also warm. Neuro: Awake, alert, oriented, normal speech, cranial nerves intact, moves all extremities symmetrically Psych: Pleasant, cooperative Medications Administered Discontinued Medications Generic Name Dose Route Start Last Admin Trade Name Freq PRN Reason Stop Dose Admin Ibuprofen 400 mg 04/17/23 04:06 04/17/23 04:09 Ibuprofen 400 Mg Tablet PO 04/17/23 04:07 400 mg ONCE ONE Administration Medical Decision Making Medical Decision Making MDM Narrative: 37-year-old male with past medical history of schizoaffective disorder, substance abuse, presenting to the ED complaining of hearing voices that are telling him that he is going to be killed. Patient states he has been noncompliant with his medications . He states that he smoked crack cocaine use intranasal heroin yesterday. He is complaining of hand and foot pain which she attributes to the cold weather and to frostbite. Patient's exam did reveal warm hands and warm feet so do not think that he has acute frostbite. Differential diagnosis: ?Includes but is not limited to suicidal ideation, homicidal ideation, auditory hallucinations, cocaine use disorder, heroin use disorder Following evaluation was ordered: CBC, CMP, drug screen, ethanol level, urinalysis, COVID-19 Patient was initially treated with the following: Ibuprofen 400 mg orally Course: 04:07 Start physician observation My independent interpretation patient's laboratory evaluation is as follows: CBC was normal. Glucose was elevated 117. Urinalysis was negative. Urine tox screen was positive for opiates, fentanyl and cocaine. COVID-19 was negative. Patient is medically cleared for care team evaluation. Patient will be kept in physician observation until disposition can be determined or his symptoms improve over time. 07:42 Physician observation continued: My independent interpretation patient's laboratory evaluation is as follows: CBC was normal. CMP was normal except for an elevated glucose of 117. Urinalysis was negative. Urine tox screen was positive for opiates, fentanyl and cocaine. Ethanol level was below detectable limits. COVID-19 was negative. Patient is medically cleared for care team evaluation. At the end of my shift, patient's care was turned over to my colleague, Dr. Quigley. Admission/Observation Consideration of admission/observation: Escalation of care including admission/observation considered Lab Data MDM Lab Attestation statement: I reviewed the patient's lab results. 04/17/23 03:14 04/17/23 03:14 Labs: Lab Results 04/17/23 Range/Units 03:14 WBC 7.7 (4.8-10.8) X10*3/uL RBC 4.73 (4.60-5.80) X10*6/uL Hgb 14.3 (14.0-18.0) g/dl Hct 41.5 L (42.0-52.0) % MCV 87.7 (80.0-98.0) fL MCH 30.2 (27.0-33.0) pg MCHC 34.5 (31.0-36.0) g/dl RDW 11.9 (11.0-16.0) % Plt Count 291 (160-400) X10*3/uL MPV 9.7 (9.4-12.4) fL Immature Gran % (Auto) 0.3 (0.0-0.4) % Neut % (Auto) 63.3 (45-73) % Lymph % (Auto) 26.6 (20-40) % Bea[place]gard % (Auto) 6.4 (2-11) % Eos % (Auto) 3.0 (0-4) % Baso % (Auto) 0.4 (0-2) % Lymph # (Auto) 2.0 (1.2-4.9) X10*3/uL [place]gard # (Auto) 0.5 (0.1-1.2) X10*3/uL Eos # (Auto) 0.2 (0.0-0.4) X10*3/uL Baso # (Auto) 0.0 (0.0-0.2) X10*3/uL Abs Immat Gran (auto) 0.02 (0.00-0.03) X10*3/uL Absolute Neuts (auto) 4.9 (2.0-8.3) x10*3/uL Absolute Nucleated RBC 0.000 (0.0-0.012) X10*3/uL Nucleated RBC % (auto) 0.0 (0.0-0.2) /100WBC Sodium 142 (135-145) mmol/L Potassium 3.5 (3.3-5.1) mmol/L Chloride 105 (96-108) mmol/L Carbon Dioxide 27 (22-29) mmol/L Anion Gap 14 (12-20) BUN 14 (9-16) mg/dL Creatinine 0.75 (0.5-1.4) mg/dL Estim Creat Clear Calc 127.7 Estimated GFR > 60 Random Glucose 117 H (60-115) mg/dL Calcium 9.2 (8.4-10.2) mg/dL Total Bilirubin 0.5 (0.0-1.0) mg/dL AST 26 (5-37) U/L ALT 15 (0-40) U/L Alkaline Phosphatase 87 (39-117) U/L Total Protein 6.8 (6.5-8.0) g/dL Albumin 4.2 (3.5-5.0) g/dL Urine Color Yellow Urine Appearance Clear Urine pH 6.5 (5.0-9.0) Ur Specific [place] 1.025 (1.005-1.025) Urine Protein Negative (Neg-Trace) mg/dL Urine Glucose (UA) Negative (Negative) mg/dL Urine Ketones Negative (Negative) mg/dL Urine Blood Negative (Negative) Urine Nitrite Negative (Negative) Ur Leukocyte Esterase Negative (Negative) Urine Opiates Screen POSITIVE H (Not Detect) Urine Fentanyl Screen POSITIVE H (Not Detect) Ur Barbiturates Screen Not Detected (Not Detect) Ur Phencyclidine Scrn Not Detected (Not Detect) Ur Amphetamines Screen Not Detected (Not Detect) U Benzodiazepines Scrn Not Detected (Not Detect) Urine Cocaine Screen POSITIVE H (Not Detect) U Marijuana (THC) Screen Not Detected (Not Detect) Ethyl Alcohol < 10 mg/dL COVID-19 (DIONI) Negative (Negative) COVID-19 Clin Com See Note Chronic Conditions Patient?s care impacted by: Other (Schizoaffective disorder) Discharge Plan Discharge Clinical Impression: Schizoaffective disorder, Auditory hallucinations, Medical non-compliance Patient Disposition: Still a Patient Prescriptions: No Action buprenorphine-naloxone [Suboxone] 8-2 mg film 30 mg sublingual DAILY Interventions: Mission-Suicide Risk Severity Scale Last Done: 04/17/23 03:27
[2023-04-17] MEDS: Ibuprofen 400 MG TABLET PO (04:09)
[2023-04-17 06:00] VITALS: RESP 18
--- NOTE | 2023-04-17 06:53 | PC.NURSE ---
Assumed care of patient at 0700, patient appears to be sleeping, respirations even and unlabored, no apparent distress. Continue plan of care for care team theron
[2023-04-17] MEDS: Buprenorphine/Naloxone 8/2 mg FILM 1 FILM SUBLINGUAL ×2 (11:48→19:48)
[2023-04-17 17:14] VITALS: BP 141/84; PULSE 73; RESP 18; TEMP 37.3; O2SAT 97
[2023-04-17] MEDS: Acetaminophen 325 MG TABLET 650 MG PO (17:24)
--- NOTE | 2023-04-17 18:12 | PC.NURSE ---
Spoke with Dorcas donaldson and verbal order for suboxone 8/2 TID was verified with Dorcas and the patient. SANTA made aware new order for suboxone 8/2 TID.
--- NOTE | 2023-04-18 06:04 | PC.NURSE ---
Patient slept through the night, no distress observed/reported, medication compliant, no behavior issues, disposition per care team is voluntary respite bed search, VSS, will continue to monitor.
[2023-04-18 06:06] VITALS: RESP 16
[2023-04-18] MEDS: busPIRone HCl 5 MG TABLET 15 MG PO (08:27)
[2023-04-18] MEDS: Buprenorphine/Naloxone 8/2 mg FILM 1 FILM SUBLINGUAL (08:28)
--- NOTE | 2023-04-18 08:31 | PC.NURSE ---
Refused his Seroquel as being discharged and it would make him to tired .
== END 2023-04-18 08:33 | disposition home or self-care (01) ==
PROVIDERS: Emergency Medicine Emergency Medical Services; Emergency Provider Emergency Medicine
DX: F25.9 Schizoaffective disorder, unspecified (principal); Z91.148 Patient's other noncompliance with medication regimen for other reason; Z11.52 Encounter for screening for COVID-19; Z79.899 Other long term (current) drug therapy
CPT/HCPCS: 80053; 80307; 81003; 85025; 87635; 99285; S9485